=== PATIENT | male | born 1980 | race Caucasian/White ===

== ENCOUNTER → 2016-07-26 | Day surgery (SDC) | payer BC ==
[2016-07-26] VITALS (8 sets, daily range): BP systolic 111–122; BP diastolic 43–71
[~2016-07-26] VITALS: Ht 182.9 cm; Wt 82.6 kg
[~2016-07-26] MED LIST: Bupivacaine 0.25% Inj 30ml INJ ONE; Dexamethasone 4mg/ml vial ONE; EPINEPHrine 1mg/1ml Amp ONE; Hydrogen Peroxide 120ml Bottle TOPIC ONE; Hydromorphone 0.5mg/0.5ml inj IVP PRN; Midazolam 2mg/2ml Inj ONE; NS Irrig 1000ml ONE; Propofol 10mg/ml 20ml IV ONE; Ropivacaine 5mg/ml Vial 20ml INJ ONE; Sterile Water Irrig 1000ml IRRIG ONE; cefOXitin 2gm Inj ONE; fentaNYL 100 mcg/2 mL IV ONE
--- NOTE | 2016-07-26 12:07 | Pre-Procedure Note/Attestation ---
Pre-Procedure Note/Attestation Complete Prior to Procedure Planned Procedure: not applicable Procedure Narrative: Incision and drainage of perirectal abscess, possible seton placement Indications for Procedure Pre-Operative Diagnosis: perirectal abscess Attestation I attest that I discussed the nature of the procedure; its benefits; risks and complications; and alternatives (and the risks and benefits of such alternatives ), prior to the procedure, with the patient (or the patient's legal real estate representative). I attest that, if there was a reasonable possibility of needing a blood transfusion, the patient (or the patient's legal real estate representative) was given the [facility] standardized written summary, pursuant to the Jeovanny Medanales Blood Safety Act ([place] Health and Safety Code # 1645, as amended). I attest that I re-evaluated the patient just prior to the surgery and that there has been no change in the patient's H&P, except as documented below: JACQUELYN CANO Jul 26, 2016 12:07
--- NOTE | 2016-07-26 12:46 | Anethesia Preoperative Eval ---
Anesthesia Pre-op PMH/ROS General Date of Evaluation: Jul 26, 2016 Time of Evaluation: 12:00 Anesthesiologist: KARLEE ASA Score: ASA 1 Mallampati Score Class I : Soft palate, uvula, fauces, pillars visible Class II: Soft palate, uvula, fauces visible Class III: Soft palate, base of uvula visible Class IV: Only hard plate visible Mallampati Classification: Class I Surgeon: RACHAEL Diagnosis: RECTAL ABSCESS Surgical Procedure: DRAINAGE RECTAL ABSCESS Anesthesia History: none Family History: no anesthesia problems Allergies: Coded Allergies: No Known Allergies (Unverified , 07/26/16) Medications: see eMAR Past Medical History Cardiovascular: Denies: CAD, HTN, [place], arrhythmia, other, valve dz Pulmonary: Denies: COPD, LEOLA, asthma, other Gastrointestinal/Genitourinary: Denies: CRI, ESRD, GERD, other Neurologic/Psychiatric: Denies: CVA, TIA, dementia, depression/anxiety, other Endocrine: Denies: DM, hypothyroidism, other, steroids HEENT: Denies: [place] (L), [place] (R), cataract (L), cataract (R), glaucoma, other Hematology/Immune: Denies: DVT, anemia, bleeding disorder, other Musculoskeletal/Integumentary: Denies: DDD, DJD, OA, RA, edema, other Anesthesia Pre-op Phys. Exam Physician Exam Last Vital Signs Date Time Temp Pulse Resp B/P Pulse Ox O2 Delivery O2 Flow Rate FiO2 07/26/16 11:52 97.5 49 18 111/71 100 Room Air Constitutional: NAD Neurologic: CN 2-12 intact Cardiovascular: RRR Respiratory: CTA Gastrointestinal: S/NT/ND Airway Exam Mallampati Score: Class I MO: full ROM: full Teeth: intact Dentures: no lower, no upper Anesthesia Pre-op A/P Risk Assessment & Plan Assessment: ASA1 Plan: MAC Pre-Antibiotics Drug: CEFOXIYIN Given Within 1 Hr of Incision: Yes Time Given: 12:25 DIMPLE DESIR M.D. Jul 26, 2016 12:46
--- NOTE | 2016-07-26 12:50 | 48 Hour Post Anesthesia Eval ---
Post Anesthesia Evaluation Procedure: EXCISION RECTAL ABSCESS Date of Evaluation: Jul 26, 2016 Airway: patent Nausea: No Vomiting: No Pain Intensity: 2 Hydration Status: adequate Cardiopulmonary Status: WNL Mental Status/LOC: patient returned to baseline Post-Anesthesia Complications: 0 Follow-up care needed: ready to discharge DIMPLE DESIR M.D. Jul 26, 2016 12:50
--- NOTE | 2016-07-26 12:50 | Immediate Post-Op Evaluation ---
Immediate Post-Op Evalulation Immediate Post-Op Evalulation Procedure: EXCISION RECTAL ABSCESS Date of Evaluation: Jul 26, 2016 Time of Evaluation: 13:30 IV Fluids: 789 Blood Products: 0 Estimated Blood Loss: 0 Urinary Output: 0 Pain Score (1-10): 1 Nausea: No Vomiting: No Patient Status: awake, patent, none Hydration Status: adequate Drug: CEFOXITIN Given Within 1 Hr of Incision: Yes Time Given: 12:25 DIMPLE DESIR M.D. Jul 26, 2016 12:50
--- NOTE | 2016-07-26 13:00 | Brief Operative Note ---
Immediate Post Operative Note Operative Note Pre-op Diagnosis: perirectal abscess Procedure: Incision and drainage of perirectal abscess Post-op Diagnosis: Perirectal abscess Post-op Diagnosis: same as pre-op Surgeon: Adriana Locke MD Anesthesiologist: Hector Ahuja MD Anesthesia: moderate sedation Specimen: none Complications: none Condition: stable Estimated Blood Loss: minimal Drains: none Implant(s) used?: ADRIANA Alonso Jul 26, 2016 13:00
--- NOTE | 2016-07-26 13:02 | Discharge Instructions ---
Discharge Instructions Discharge Instructions Diet: regular Resume Normal Activity?: Yes Activity: resume normal activities, as tolerated Follow Up Orders Remove gauze dressing and tape tomorrow am. Then may shower and bathe as usual. Follow up with Dr. Cano in 1-2 weeks. Pt to call for appointment at [phone]. For Surgical Patients Dressing Care: other May shower: Yes For Congestive Heart Failure Reminder Report to your physician any weight gain of 5 pounds or more in one week. JACQUELYN CANO Jul 26, 2016 13:02
--- NOTE | 2016-07-26 17:28 | Operative Note - Dictated ---
DATE OF OPERATION: 07/26/2016 PREOPERATIVE DIAGNOSIS: Perirectal abscess. POSTOPERATIVE DIAGNOSIS: Perirectal abscess. PROCEDURE: Incision and drainage of perirectal abscess. SURGEON: Adriana Locke M.D. ANESTHESIOLOGIST: Dr. Hector Ahuja. ANESTHESIA: Propofol sedation with local anesthetic. INDICATION FOR PROCEDURE: The patient is a 35-year-old male with a history of perirectal pain for the last four days. The patient was initially seen by me in 2013 complaining of abscess or cyst in the left posterior region. The patient was found at that time to have no abscess. The patient was last seen on 06/17/2013 with inflammation of the lesion that would occasionally flare up and then subside. The patient then was noted to have an abscess in the office upon evaluation in the same location and it was determined at this time to proceed with incision and drainage under anesthesia. DESCRIPTION OF PROCEDURE: Upon consent of the patient, the patient was brought to the operating room and placed in the prone marc-knife position on the operating table. Once adequate sedation was established with propofol drip, the patient's buttocks were prepped and draped in the usual standard surgical fashion. A 30 mL of 0.5% ropivacaine with epinephrine mixed with 6 mg of dexamethasone was used as a perianal and pudendal block. A Hill-Davis retractor was placed in the anal canal and there is noted to be small internal hemorrhoids. There is noted to be obvious abscess in the right posterior perianal region, which was incised and diffuse purulent fluid was sent off for cultures and sensitivity. The wound was irrigated. Hemostasis confirmed. Upon probing the wound, there was noted to be no fistula tract and no internal opening on the internal anal canal. Hydrogen peroxide was also used to check for any fistulous tract. An 18-gauge needle was used to aspirate the right perirectal region and also in the midline to make sure that there was no horseshoe fistula. The anal canal was then irrigated and hemostasis confirmed. Sterile dry dressing was used as an outer dressing. Sponge, needle, and instrument counts were correct at the end of the case. The patient was awakened from anesthesia and brought to postanesthesia recovery room in stable condition. ESTIMATED BLOOD LOSS: Less than 5 mL. DRAINS: None. SPECIMEN: abscess for cultures COMPLICATIONS: None. Adriana Locke M.D. DR: ANU JOB#: [id number] CC: Jose Tovar M.D. [facility] HE[facility] NETWORKBenji
== END | disposition home or self-care (01) ==
LOC: SUR 11:15
DX: K61.1 Rectal abscess (principal); K64.8 Other hemorrhoids
CPT/HCPCS: 46040; 87070; 87075; 87181; 87205; J0171; J0694; J1100; J1170; J2250; J2405; J2704; J2795; J3010; 94003; 94150

== ENCOUNTER 2017-01-29 05:24 | Day surgery (SDC) | payer BC ==
[~2017-01-29] VITALS: Ht 182.9 cm; Wt 88.5 kg
[2017-01-29] VITALS (9 sets, daily range): BP systolic 108–128; BP diastolic 58–72
[~2017-01-29 05:24] MED LIST changes: -Bupivacaine 0.25% Inj 30ml INJ ONE; -Dexamethasone 4mg/ml vial ONE; -EPINEPHrine 1mg/1ml Amp ONE; -Hydrogen Peroxide 120ml Bottle TOPIC ONE; -Hydromorphone 0.5mg/0.5ml inj IVP PRN; -Midazolam 2mg/2ml Inj ONE; +NKM; -NS Irrig 1000ml ONE; -Propofol 10mg/ml 20ml IV ONE; -Ropivacaine 5mg/ml Vial 20ml INJ ONE; -Sterile Water Irrig 1000ml IRRIG ONE; -cefOXitin 2gm Inj ONE; -fentaNYL 100 mcg/2 mL IV ONE
[2017-01-29] MEDS ORDERED: Surgicel 4in x 8in TOPIC ONE (06:36)
[2017-01-29] MEDS ORDERED: Dexamethasone 4mg/ml vial ONE (06:36)
[2017-01-29] MEDS ORDERED: Ropivacaine 5mg/ml Vial 30ml INJ ONE (06:37)
[2017-01-29] MEDS ORDERED: EPINEPHrine 1mg/1ml Amp ONE (06:37)
[2017-01-29] MEDS ORDERED: Propofol 200mg/20ml IV ONE (06:37)
[2017-01-29] MEDS ORDERED: Hydrogen Peroxide 473ml Bottle TOPIC ONE (06:38)
[2017-01-29] MEDS ORDERED: cefOXitin 2gm Inj ONE (06:38)
[2017-01-29] MEDS ORDERED: Acetic Acid 3% Solution 15ml TOPIC ONE (06:45)
--- NOTE | 2017-01-29 06:57 | Pre-Procedure Note/Attestation ---
Pre-Procedure Note/Attestation Complete Prior to Procedure Planned Procedure: not applicable Procedure Narrative: Exam under anesthesia, exicison of perirectal lesion, possible fistulotomy, possible seton placement Indications for Procedure Pre-Operative Diagnosis: perirectal lesion Attestation I attest that I discussed the nature of the procedure; its benefits; risks and complications; and alternatives (and the risks and benefits of such alternatives ), prior to the procedure, with the patient (or the patient's legal sales and marketing representative). I attest that, if there was a reasonable possibility of needing a blood transfusion, the patient (or the patient's legal sales and marketing representative) was given the [place] [facility] standardized written summary, pursuant to the Jeovanny Tami Blood Safety Act ([place] Health and Safety Code # 1645, as amended). I attest that I re-evaluated the patient just prior to the surgery and that there has been no change in the patient's H&P, except as documented below: JACQUELYN CANO Jan 29, 2017 06:57
[2017-01-29] MEDS ORDERED: fentaNYL 100 mcg/2 mL IV ONE (07:00)
[2017-01-29] MEDS ORDERED: Ketorolac 30mg Inj ONE (07:00)
[2017-01-29] MEDS ORDERED: Midazolam 2mg/2ml Inj ONE (07:00)
[2017-01-29] MEDS ORDERED: LR 1000ml ONE (07:00)
[2017-01-29] MEDS ORDERED: NS Irrig 1000ml IRRIG ONE (07:05)
--- NOTE | 2017-01-29 07:42 | Anethesia Preoperative Eval ---
Anesthesia Pre-op PMH/ROS General Date of Evaluation: Jan 29, 2017 Time of Evaluation: 06:55 Anesthesiologist: Shirley ASA Score: ASA 2 Mallampati Score Class I : Soft palate, uvula, fauces, pillars visible Class II: Soft palate, uvula, fauces visible Class III: Soft palate, base of uvula visible Class IV: Only hard plate visible Mallampati Classification: Class II Surgeon: Chucky Diagnosis: Rectal fistula Surgical Procedure: Excision of perirectal leision Anesthesia History: none Social History: current smoker Family History: no anesthesia problems Allergies: Coded Allergies: No Known Allergies (Unverified , 07/26/16) Medications: see eMAR Past Medical History Cardiovascular: Denies: HTN, CAD, [place], valve dz, arrhythmia, other Pulmonary: Denies: asthma, COPD, LEOLA, other Gastrointestinal/Genitourinary: Denies: GERD, CRI, ESRD, other Neurologic/Psychiatric: Denies: dementia, CVA, depression/anxiety, TIA, other Endocrine: Denies: DM, hypothyroidism, steroids, other HEENT: Denies: cataract (L), cataract (R), glaucoma, [place] (L), ASSINIBOINE AND [place] (R), other Hematology/Immune: Denies: anemia, DVT, bleeding disorder, other Musculoskeletal/Integumentary: Denies: OA, RA, DJD, DDD, edema, other PMH Narrative: as above PSxH Narrative: perirectal abscess Anesthesia Pre-op Phys. Exam Physician Exam Last Vital Signs Date Time Temp Pulse Resp B/P (MAP) Pulse Ox O2 Delivery O2 Flow Rate FiO2 01/29/17 05:49 98.5 62 20 128/72 97 Room Air Constitutional: NAD Neurologic: CN 2-12 intact Cardiovascular: RRR, no M/R/G Respiratory: CTA Gastrointestinal: S/NT/ND Airway Exam Mallampati Score: Class II MO: full Neck: flexible ROM: full Teeth: intact Dentures: no upper, no lower Anesthesia Pre-op A/P Labs see chart Risk Assessment & Plan Assessment: ASA 2 Plan: MAC surgeon request Status Change Before Surgery: No Pre-Antibiotics Drug: Cefoxitin 2gr. Given Within 1 Hr of Incision: Yes Time Given: 07:25 ONOFRE WYMAN M.D. Jan 29, 2017 07:42
[2017-01-29] MEDS ORDERED: LR 1000ml 1,000 ML IVLG SCH (07:56)
--- NOTE | 2017-01-29 07:56 | Brief Operative Note ---
Immediate Post Operative Note Operative Note Pre-op Diagnosis: perirectal lesion Procedure: Exam under anesthesia, anal fistulotomy, excision of chronic wound abscess Post-op Diagnosis: same as pre-op Findings: consistent w/pre-op dx studies - anal fistula, chronic wound abscess Surgeon: Adriana Cano MD Shipping Room Supervisor: Yvonne Lynch MD Anesthesiologist: Rafat Anesthesia: MAC Specimen: none Complications: none Condition: stable Fluids: see anesthesia sheet Estimated Blood Loss: minimal Drains: none Implant(s) used?: No ADRIANA CANO Jan 29, 2017 07:56
--- NOTE | 2017-01-29 07:56 | Immediate Post-Op Evaluation ---
Immediate Post-Op Evalulation Immediate Post-Op Evalulation Procedure: Excision of perirectal leision Date of Evaluation: Jan 29, 2017 Time of Evaluation: 07:55 IV Fluids: 800 Blood Products: none Estimated Blood Loss: min Urinary Output: none Blood Pressure Systolic: 108 Blood Pressure Diastolic: 56 Pulse Rate: 64 Respiratory Rate: 20 O2 Sat by Pulse Oximetry: 99 Temperature (Fahrenheit): 97.6 Pain Score (1-10): 2 Nausea: No Vomiting: No Complications none Patient Status: reacts, patent, none Hydration Status: adequate ONOFRE WYMAN M.D. Jan 29, 2017 07:56
--- NOTE | 2017-01-29 07:58 | 48 Hour Post Anesthesia Eval ---
Post Anesthesia Evaluation Procedure: Excision of perirectal leision Date of Evaluation: Jan 29, 2017 Time of Evaluation: 08:50 Blood Pressure Systolic: 116 0: 62 Pulse Rate: 62 Respiratory Rate: 21 Temperature (Fahrenheit): 97.8 O2 Sat by Pulse Oximetry: 99 Airway: patent Nausea: No Vomiting: No Pain Intensity: 2 Hydration Status: adequate Cardiopulmonary Status: stable Mental Status/LOC: patient returned to baseline Follow-up Care/Observations: n/a Post-Anesthesia Complications: none Follow-up care needed: ready to discharge ONOFRE WYMAN M.D. Jan 29, 2017 07:58
[2017-01-29] MEDS ORDERED: Ketorolac 30mg Inj IV PRN (08:00)
[2017-01-29] MEDS ORDERED: Meperidine 25mg/0.5ml Inj (FOR RIGORS ONLY) IV PRN (08:00)
[2017-01-29] MEDS ORDERED: DiphenhydrAMINE 50mg/ml Inj IVP PRN (08:00)
--- NOTE | 2017-01-29 22:45 | Operative Note - Dictated ---
DATE OF OPERATION: 01/29/2017 Preprocedure Diagnosis: Recurrent perirectal drainage, rule out anal fistula. Postoperative Diagnosis: Recurrent perirectal drainage, rule out anal fistula. Procedure: Exam under anesthesia, anal fistulotomy, excision of chronic perirectal lesion. SURGEON: Adriana Locke M.D. RECONCILIATION COORDINATOR SURGEON: Yvonne Lynch M.D. ANESTHESIOLOGIST: Colby Watson M.D. ANESTHESIA: Propofol sedation with local anesthetic. Indication for Procedure: The patient is a 36-year-old male, who first came to me in the office in 2013 complaining of persistent lump on his bottom. The patient was seen 3 years later on 07/25/2016 complaining of the lump getting bigger and painful and that the patient was found to have an abscess at that time and had incision and drainage of a perirectal abscess on 07/26/2016. The patient healed from the surgery, but there was also continued draining and persistence of the perirectal swelling. The patient had MRI done to rule out a fistula tract on 10/23/2016, which was negative for any fistula tract or abscess. However, the patient continued to have drainage and it was determined at this time to proceed with exam under anesthesia with possible anal fistulotomy. Description of Procedure: Upon consent of the patient, the patient was brought to the operating room and placed in a prone marc-knife position on operating room table. Once adequate sedation was established with propofol drip, the patient's buttocks were prepped and draped in usual surgical fashion. A 40 mL of 0.5% ropivacaine with epinephrine mixed with 6 mg of dexamethasone was used as a perianal and pudendal block. A Hill-Davis retractor was placed in the anal canal and there was noted to be the same swelling in the right posterior perirectal region. This was probed with a lacrimal probe and hydrogen peroxide was also infiltrated. The probe appeared to track down to the dentate line located radially. The skin was opened overlying the tract and there was noted to be minimal amount of internal sphincter muscle involvement. There was no involvement of the external anal sphincter. The tract also tracks cephalad and this was opened up as well to remove the granulation tissue from the old cavity. The wound was then irrigated and hemostasis was confirmed. Overhanging edges were excised to allow for better wound healing. The remainder of the anal canal was noted to be some moderately small internal hemorrhoids. Wet-to-dry dressing was placed in the wound. Sponge, needle, and instrument counts were correct at the end of the case. The patient was awakened from anesthesia and brought to postanesthesia recovery room in stable condition. ESTIMATED BLOOD LOSS: 5 mL. DRAINS: None. SPECIMEN: None. COMPLICATIONS: None. Adriana Locke M.D. DR: ALEXIA JOB#: [id number] CC: Adriana Locke M.D.; Fax#: [phone] Frisch, M.D.
== END 2017-01-29 09:10 | disposition home or self-care (01) ==
LOC: SUR 05:24
DX: K60.5 Anorectal fistula (principal); K64.8 Other hemorrhoids; F17.200 Nicotine dependence, unspecified, uncomplicated
CPT/HCPCS: 46275; J0171; J0694; J1100; J1885; J2250; J2704; J2795; J3010; J7120; 94003; 94150